=== PATIENT | female | born 1945 | race Caucasian/White ===

== ENCOUNTER 2019-01-01 00:29 | Emergency (ER) | payer MEDICARE ==
[2019-01-01 01:25] LABS: BASOPHILS % (AUTO) 1.9 % (0.0-5.0); EOSINOPHILS % (AUTO) 2.5 % (0.0-8.0); HEMATOCRIT 41.4 % (36-48); LYMPHOCYTES % (AUTO) 18.4 % (21.0-51.0); MEAN CORPUSCULAR HGB CONC 33.6 g/dL (32.0-36.0); MEAN CORPUSCULAR VOLUME 86.4 fL (79-99); MONOCYTES % (AUTO) 4.6 % (3.0-13.0); NEUTROPHILS % (AUTO) 72.6 % (40.0-77.0); NUCLEATED RED BLOOD CELLS 0.1 % (0.0-0.19); PLATELET COUNT (AUTO) 215 K/uL (130-400); RED BLOOD CELL COUNT(AUTO) 4.79 MIL/uL (4.00-5.50); RED CELL DISTRIBUTION WIDTH 14.7 % (11.0-15.5); WHITE BLOOD COUNT (AUTO) 9.6 K/uL (4.8-10.8)
[2019-01-01] MEDS ORDERED: MECLIZINE HCL 25 MG TABLET ONE (01:31)
[2019-01-01] MEDS ORDERED: SODIUM CHLORIDE 0.9% 1000ML 1,000 ML IV ONE (01:31)
[2019-01-01] MEDS ORDERED: ONDANSETRON HCL 4 MG/2 ML VIAL ONE (01:31)
[2019-01-01 01:35] LABS: PARTIAL THROMBOPLASTIN TIME 25.6 SEC (26.3-35.5); PROTHROMBIN TIME 10.5 SEC (9.6-11.6)
[2019-01-01 01:41] LABS: AMYLASE 36 U/L (25-115); CREATINE KINASE, TOTAL 74 U/L (21-232); LIPASE 162 U/L (114-286)
[2019-01-01 03:59] LABS: APPEARANCE,URINE Clear (CLEAR); BILIRUBIN,URINE Negative (NEGATIVE); COLOR,URINE Yellow (YELLOW); GLUCOSE, URINE (UA) Negative (NEGATIVE); KETONES,URINE Trace mg/dL (NEGATIVE); LEUKOCYTE ESTERASE ,URINE Negative (NEGATIVE); NITRATE,URINE Negative (NEGATIVE); OCCULT BLOOD,URINE Negative (NEGATIVE); PH,URINE 5.5 (5.0-8.0); PROTEIN,URINE Negative (NEGATIVE); UROBILINOGEN,URINE 0.2 mg/dL (0.2-1.0)
== END 2019-01-01 05:03 | disposition home or self-care (01) ==
LOC: EDH 00:29
DX: K52.9 Noninfective gastroenteritis and colitis, unspecified (principal); E86.0 Dehydration; H81.393 Other peripheral vertigo, bilateral; R55 Syncope and collapse; I10 Essential (primary) hypertension; E78.5 Hyperlipidemia, unspecified; Z86.73 Personal history of transient ischemic attack (TIA), and cerebral infarction without residual deficits; Z88.5 Allergy status to narcotic agent
CPT/HCPCS: 36415; 81003; 82150; 82550; 83690; 84484; 85025; 85610; 85730; 87804 ×2; 93005; 96361; 96374; 99284; J2405; J7030

== ENCOUNTER → 2025-05-28 | Outpatient (CLI) | payer MEDICARE ==
--- NOTE | 2025-05-29 06:59 | HMCIMG ---
EXAM: CT maxillofacial region Without IV contrast. CLINICAL HISTORY: Sinusitis. TECHNIQUE: Thin collimated axial CT images of the paranasal sinuses were obtained with sagittal and coronal reformatted images also submitted. CT scan done according to ALARA (As Low As Reasonably Achievable). CONTRAST: None. COMPARISON: None provided. FINDINGS: Mild bilateral ethmoid, maxillary and sphenoid sinusitis. The paranasal sinuses outflow tracts including the ostiomeatal complexes are patent bilaterally. The nasal septum is deviated to the right side. Unremarkable nasal cavities and nasopharynx. 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 No acute osseous changes are present. Intact roof of the ethmoids, cribriform plate, and planum sphenoidale. No significant cervical lymphadenopathy. 8.5 mm calcified lesion in the left submandibular region, likely calcified node. The included mastoid air cells are clear. The imaged portions of the intracranial substances and orbits are grossly unremarkable. Mild atheromatous vascular calcification. Mild to moderate cervical spondylosis. IMPRESSION: 1. Mild bilateral ethmoid, maxillary and sphenoid sinusitis. 2. Deviated nasal septum to the right side. 3. No acute abnormality. /[place]
== END | disposition home or self-care (01) ==
LOC: RAH 13:34
PROVIDERS: ATTEND Otolaryngology
DX: J32.2 Chronic ethmoidal sinusitis (principal); J32.0 Chronic maxillary sinusitis; J32.3 Chronic sphenoidal sinusitis; J34.2 Deviated nasal septum
CPT/HCPCS: 70486